=== PATIENT | male | born 1985 | race Caucasian/White ===

== ENCOUNTER 2020-12-27 21:59 | Emergency (ER) | payer MEDICAID ==
--- NOTE | 2020-12-28 00:16 | EDM.PDOC ---
ED HPI GENERAL MEDICAL PROBLEM - General Chief Complaint: Gastrointestinal Problem Stated Complaint: PAIN IN L SIDE Time Seen by Provider: 12/27/20 23:03 Source of Information: Reports: Patient History Limitations: Reports: No Limitations - History of Present Illness INITIAL COMMENTS - FREE TEXT/NARRATIVE: Adan is a 35-year-old male presenting to the ED for evaluation of intermittent episodes of hematochezia and melena. Patient first had symptoms of hematochezia on 12/17/2020. On that day he had some left lower quadrant abdominal pain that continued to build lasting several hours before having a bowel movement. He stated initially the bowel movement was quite hard and then was followed by a more soft loose stool. At that time he did not notice any blood, however, that evening he had another bowel movement with hematochezia that he showed me the picture of on his phone. The next day he had another episode of hematochezia without any abdominal pain. Today he comes in because he starting to have stool with black areas consistent with possible melena. Patient is very concerned because there is a strong family history of cancer. He denies any pain at this time but is extremely anxious. He denies any fever, chills, nausea or vomiting, weight gain or weight loss, chest pain, or shortness of breath. Left Middle Abdomen Pain Score (Numeric/FACES): 4 - Related Data Allergies Allergy/AdvReac Type Severity Reaction Status Date / Time No Known Allergies Allergy Verified 12/27/20 22:26 Home Meds: Home Meds Buprenorphine/Naloxone [Buprenorphine-Naloxone 8 MG-2 MG] 1 tab SL BID 06/20/20 [History] Gabapentin [Neurontin] 600 mg PO QID 06/20/20 [History] Insulin Detemir [Levemir Flextouch] 20 unit SQ BEDTIME 06/20/20 [History] Naproxen 500 mg PO DAILY 06/20/20 [History] metFORMIN HCl [Glucophage] 1,000 mg PO BID 06/20/20 [History] Omeprazole 20 mg PO DAILY #14 tablet. 12/28/20 [Rx] Past Medical History Respiratory History: Reports: PE Musculoskeletal History: Reports: Arthritis, Back Pain, Chronic, Fracture, Neck Pain, Chronic Other Musculoskeletal History: crushed vertebrae in thoracic Neurological History: Reports: Concussion, Migraines Endocrine/Metabolic History: Reports: Diabetes, Type II - Infectious Disease History Infectious Disease History: Reports: Chicken Pox - Past Surgical History GI Surgical History: Reports: Appendectomy Social & Family History - Tobacco Use Tobacco Use Status *Q: Current Every Day Tobacco User Years of Tobacco use: 20 Packs/Tins Daily: 2 - Caffeine Use Caffeine Use: Reports: Energy Drinks Caffeine Use Comment: daily - Recreational Drug Use Recreational Drug Use: No ED ROS GENERAL - Review of Systems Review Of Systems: See Below Constitutional: Reports: No Symptoms HEENT: Reports: No Symptoms Respiratory: Reports: No Symptoms Cardiovascular: Reports: No Symptoms Endocrine: Reports: No Symptoms GI/Abdominal: Reports: Abdominal Pain (Intermittent abdominal pain most frequently in the left lower quadrant. No pain at this time.), Decreased Ap petite (Since 12/17/2020), Hematochezia (On 12/17 and 12/18/2020), Melena (Possibly today) : Reports: No Symptoms Musculoskeletal: Reports: Back Pain (Intermittent muscle spasms in the back) Skin: Reports: No Symptoms Neurological: Reports: No Symptoms Psychiatric: Reports: Anxiety Hematologic/Lymphatic: Reports: No Symptoms Immunologic: Reports: No Symptoms ED EXAM, GI/ABD - Physical Exam Exam: See Below Exam Limited By: No Limitations General Appearance: Alert, No Apparent Distress, Anxious Eyes: Bilateral: EOMI Throat/Mouth: Normal Oropharynx, Normal Voice, No Airway Compromise Head: Atraumatic, Normocephalic Neck: Normal Inspection, Supple Respiratory/Chest: No Respiratory Distress, Lungs Clear, Normal Breath Sounds Cardiovascular: Normal Peripheral Pulses, Regular Rate, Rhythm, No Murmur GI/Abdominal Exam: Normal Bowel Sounds, Soft, Non-Tender. No: Guarding, Rigid, Rebound Rectal (Males) Exam: Normal Exam, Normal Rectal Tone, Other (Hemoccult is negative). No: Bloody Stool, Hemorrhoids, Rectal Fissure, Tenderness Back Exam: Muscle Spasm (Mild muscle spasms) Extremities: Normal Inspection, Normal Range of Motion, No Pedal Edema, Normal Capillary Refill Neurological: Alert, Oriented, Normal Cognition, No Motor/Sensory Deficits Psychiatric: Anxious Skin Exam: Warm, Dry, Intact, Normal Color Course - Vital Signs Last Recorded V/S: Last Vital Signs Temp 36.5 C 12/27/20 22:33 Pulse 81 12/27/20 22:33 Resp 16 12/27/20 22:33 BP 149/76 H 12/27/20 22:33 Pulse Ox 98 12/27/20 22:33 - Orders/Labs/Meds Labs: Laboratory Tests 12/27/20 12/27/20 12/27/20 Range/Units 23:25 23:25 23:25 WBC 8.8 (4.5-11.0) K/uL RBC 4.60 (4.30-5.90) M/uL Hgb 13.5 (12.0-15.0) g/dL Hct 39.2 L (40.0-54.0) % MCV 85 (80-98) fL MCH 29 (27-31) pg MCHC 34 (32-36) % Plt Count 318 (150-400) K/uL Neut % (Auto) 52.9 (36-66) % Lymph % (Auto) 35.5 (24-44) % Leslie % (Auto) 8.3 H (2-6) % Eos % (Auto) 2.7 (2-4) % Baso % (Auto) 0.6 (0-1) % PT 10.0 (9.5-12.0) sec INR 0.92 (0.80-1.20) APTT 23.6 L (27.0-36.0) sec Sodium 141 (140-148) mmol/L Potassium 3.9 (3.6-5.2) mmol/L Chloride 102 (100-108) mmol/L Carbon Dioxide 29 (21-32) mmol/L Anion Gap 9.9 (5.0-14.0) mmol/L BUN 9 (7-18) mg/dL Creatinine 0.8 (0.8-1.3) mg/dL Est Cr Clr Drug Dosing 138.57 mL/min Estimated GFR (MDRD) > 60 (>60) Glucose 175 H (74-106) mg/dL Calcium 8.9 (8.5-10.1) mg/dL Total Bilirubin 0.4 (0.2-1.0) mg/dL AST 21 (15-37) U/L ALT 37 (12-78) U/L Alkaline Phosphatase 102 (46-116) U/L Total Protein 6.9 (6.4-8.2) g/dL Albumin 4.0 (3.4-5.0) g/dL Globulin 2.9 (2.3-3.5) g/dL Albumin/Globulin Ratio 1.4 (1.2-2.2) - Re-Assessments/Exams Free Text/Narrative Re-Assessment/Exam: 12/28/20 00:26 shows a normal Hemoccult, CBC, and comprehensive metabolic profile. The patient is very concerned about possible cancer so we will arrange for him to follow-up with the general surgery where they can discuss the utility of doing an endoscopy and colonoscopy. It is possible that he had an ulcer causing the melena so we will also put him on a PPI (omeprazole 20 mg daily) for 14 days to treat this. At this time, the patient is suitable for discharge home. Indications return to the ED were discussed. Departure - Departure Time of Disposition: 00:14 Disposition: Home, Self-Care 01 Clinical Impression: Complaint of melena, Intermittent abdominal pain, Family history of cancer - Discharge Information Prescriptions: Omeprazole 20 mg PO DAILY #14 tablet. Referrals: PCP,None [Primary Care Provider] - Forms: ED Department Discharge Care Plan Goals: I will put through a referral for you to see the general surgeon to talk about undergoing a colonoscopy. In the meantime we will start omeprazole 20 mg daily for the next 14 days to reduce the amount of acid in the stomach and treat what I presume is an gastric ulcer. The general surgeon's office will contact you to arrange the appointment. Sepsis Event Note (ED) - Evaluation Sepsis Screening Result: No Definite Risk - Focused Exam Vital Signs: Vital Signs Temp Pulse Resp BP Pulse Ox 12/27/20 22:33 36.5 C 81 16 149/76 H 98 - Problem List & Annotations (1) Complaint of melena SNOMED Code(s): 907197199 Code(s): K92.1 - MELENA Status: Acute Priority: Medium Current Visit: Yes (2) Intermittent abdominal pain SNOMED Code(s): 92860203, 639290429 Code(s): R10.9 - UNSPECIFIED ABDOMINAL PAIN Status: Acute Priority: Medium Current Visit: Yes (3) Family history of cancer Status: Acute Priority: Medium Current Visit: Yes - Problem List Review Problem List Initiated/Reviewed/Updated: Yes
== END 2020-12-28 00:41 | disposition home or self-care (01) ==
LOC: JP.ED 21:59
DX: K92.1 Melena (principal); E11.9 Type 2 diabetes mellitus without complications; Z72.0 Tobacco use; Z79.899 Other long term (current) drug therapy; Z79.4 Long term (current) use of insulin
CPT/HCPCS: 36415; 80053; 82272; 85025; 85610; 85730; 99284

== ENCOUNTER 2021-11-07 13:09 | Emergency (ER) | payer MEDICAID ==
[2021-11-07] MEDS ORDERED: Ketorolac 10 MG Tab PO ONE (13:46)
== END 2021-11-07 14:14 | disposition home or self-care (01) ==
LOC: JP.ED 13:09
DX: H66.002 Acute suppurative otitis media without spontaneous rupture of ear drum, left ear (principal); E11.9 Type 2 diabetes mellitus without complications; F17.210 Nicotine dependence, cigarettes, uncomplicated; Z79.84 Long term (current) use of oral hypoglycemic drugs; Z79.899 Other long term (current) drug therapy
CPT/HCPCS: 99282; A9270